=== PATIENT | male | born 1955 | race Caucasian/White ===

== ENCOUNTER 2023-02-10 14:51 | Outpatient (AMB) | payer OTHER, SELFPAY ==
--- NOTE | 2023-02-10 14:58 | HO.SPINEOV ---
Intake Intake Visit Reasons: Neck pain Assessment & Plan Assessment & Plan (1) Brachial neuritis of right upper extremity: Code(s): M54.10 - Radiculopathy, site unspecified Plan Dear colleague Thank you for referring Alex Woods to the office today with a chief complaint of right-sided neck pain, arm pain and weakness. HPI: 3 weeks ago he developed right-sided neck pain in the suprascapular region which radiated to his upper arm. To the 2-3 days later he developed numbness and weakness in his right arm. Specifically the hypersensitivity is on the medial side of his arm into the 4th and 5th digit any has triceps weakness and belt brander weakness. The weakness has been stable. The pain has slightly improved. He went to the emergency room of [facility]. They ordered an MRI of the cervical spine and a neurology consult. The neurologist ordered an MRI of the thoracic spine and EMG which will be done tomorrow. PMH: Hypertension, high cholesterol, arrhythmia Social history: . Nonsmoker Medications: Lowers her 10, metoprolol, at Avastin, Neurontin, Percocet and naproxen for pain control Allergies: NKDA Physical Exam: Pleasant male in obvious agony. Spurling test is negative. The pain is in the right supraclavicular region. There is hyperesthesia predominantly on the medial side of his right lower arm and digit the 4 and 5. There is a grade 4/5 triceps weakness and grade 4 minus out of 5 hand belt brander weakness on the right side. No atrophy. Reflexes are low to absent. No pathological reflexes. 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 No acute disc herniation. No spinal cord compression. Impression/Plan: This patient developed an acute pain the shoulder and upper arm followed by hyperesthesia and weakness involving multiple nerve roots. Differential diagnosis is brachial neuritis ([place] Vela syndrome). A cervical radiculopathy is less likely. He will call me with the results of his EMG. The good news is that brachial neuritis will recover over time without therapy. Thank you for allowing me to participate in your patients care. total time spent was 50 minutes in counseling ,coordination of plan, personal review of imaging, surgical decision making and subsequent plan Marty Booth MD, PhD [facility] Trained Neurosurgeon Director, [facility] Coding Level of Care Code New Pt Level 4 (77014) Diagnoses Brachial neuritis of right upper extremity M54.10
--- NOTE | 2023-02-10 14:59 | A.SPINEOV_ITS ---
Intake Intake Visit Reasons: Neck pain Intake Note: Mr. Capps is here today c/o neck pain. MRI here. Vendor Relationship Manager Required: No Coding Diagnoses
== END 2023-02-10 15:26 | disposition home or self-care (01) ==
PROVIDERS: PCP Internal Medicine Geriatric Medicine; Visit Provider Neurological Surgery
DX: M54.10 Radiculopathy, site unspecified (principal)
CPT/HCPCS: 99204

== ENCOUNTER → 2023-02-10 14:51 | Outpatient (BNVA) | payer OTHER, SELFPAY | PROVIDERS: PCP Internal Medicine Geriatric Medicine; Visit Provider Neurological Surgery ==